=== PATIENT | female | born 1955 | race Two or more races ===

== ENCOUNTER 2019-01-31 09:08 | Emergency (ER) | payer OTHER ==
[~2019-01-31] VITALS: Ht 170.2 cm; Wt 63.5 kg
[~2019-01-31 09:08] MED LIST: DICLOFENAC SODI50 MG PO; GLIMEPIRIDE1 MG; GLUMETZA1000 MG; JANUMET 50-1,01 EACH; KETO10TA2 PO; LANTUS SOL100 UNIT/1; ZOCOR5 MG
[2019-01-31] MEDS ORDERED: MAXIMUM D310000 UNIT (09:23)
[2019-01-31] MEDS ORDERED: FORTAMET1000 MG (09:24)
[2019-01-31] MEDS ORDERED: ALENDRONATE SOD70 MG (09:24)
== END 2019-01-31 15:30 | disposition home or self-care (01) ==
LOC: ER 09:08
DX: R22.0 Localized swelling, mass and lump, head (principal)

== ENCOUNTER 2020-01-23 09:17 | Outpatient (CLI) | payer OTHER ==
[~2020-01-23 09:17] MED LIST changes: +ALENDRONATE SOD70 MG; +FORTAMET1000 MG; +MAXIMUM D310000 UNIT
== END 2020-01-23 09:35 | disposition home or self-care (01) ==
LOC: RAD 09:17
DX: M25.561 Pain in right knee (principal); M25.562 Pain in left knee; M25.511 Pain in right shoulder

== ENCOUNTER 2020-05-15 12:55 | Outpatient (CLI) | payer OTHER | END 2020-05-15 13:01 | disposition home or self-care (01) | LOC: SONOGRAMA 12:55 → MAMO-SONO 13:15 | DX: M25.511 Pain in right shoulder (principal); M25.512 Pain in left shoulder ==